=== PATIENT | male | born 1985 | race Caucasian/White ===

== ENCOUNTER 2024-02-28 07:14 | Emergency (ER) | payer SELFPAY ==
[~2024-02-28] VITALS: Ht 170.2 cm; Wt 82.0 kg
[2024-02-28 07:17] VITALS: BP 146/90; PULSE 100; RESP 18; TEMP 98.3; O2SAT 98
== END 2024-02-28 07:53 | disposition left against medical advice (07) ==
LOC: ER 07:14
DX: F10.129 Alcohol abuse with intoxication, unspecified (principal); Y90.9 Presence of alcohol in blood, level not specified
CPT/HCPCS: 99283